=== PATIENT | male | born 1975 | race African-American/Black ===

== ENCOUNTER 2017-05-20 08:13 | Emergency (ER) | payer MEDICAID ==
[~2017-05-20] VITALS: Ht 175.3 cm; Wt 85.0 kg
[2017-05-20 08:14] VITALS: BP 136/82
== END 2017-05-20 10:17 | disposition left against medical advice (07) ==
LOC: ER 08:13
DX: R51 Headache (principal); Z53.21 Procedure and treatment not carried out due to patient leaving prior to being seen by health care provider

== ENCOUNTER 2018-05-04 19:06 | Inpatient (IN) | payer MEDICAID ==
[~2018-05-04] VITALS: Ht 185.4 cm; Wt 117.9 kg
[2018-05-04 21:38] LABS: BASOPHILS % 0.2 % (0.0-2.0); EOSINOPHILS % 0.1 % (0.0-5.0); HEMATOCRIT. 42.8 % (42.0-52.0); HEMOGLOBIN. 14.1 g/dL (14.0-18.0); LYMPHOCYTES % 21.6 % (20.0-50.0); MEAN CORPUSCULAR HEMOGLOBIN 30.3 pg (28.0-32.0); MEAN CORPUSCULAR VOLUME 91.6 fL (80.0-94.0); MEAN PLATELET VOLUME 8.2 fl (7.4-10.4); MONOCYTES % 8.2 % (2.0-8.0); NEUTROPHILS % 69.9 % (40.0-76.0); PLATELET 240 x1000/uL (130-400); RED BLOOD CELL COUNT 4.67 mill/uL (4.7-6.1); RED CELL DISTRIBUTION WIDTH 14.6 % (11.6-14.6)
[2018-05-04 21:45] LABS: CHLORIDE 104 mEq/L (98-107)
[2018-05-04] MEDS ORDERED: ASPIRIN 325MG EC TABLET PO ONE (21:45)
[2018-05-04] MEDS ORDERED: NITROGLYCERIN 0.4MG TABLET SL SL ONE (21:45)
[2018-05-04 23:13] LABS: INR 1.1; PARTIAL THROMBOPLASTIN TIME 27.1 sec (23.4-31.0)
[2018-05-04] MEDS ORDERED: MORPHINE SULFATE 4 MG/ML CPJ (NOT FOR IM USE) IV ONE (23:45)
[2018-05-05] MEDS ORDERED: MORPHINE SULFATE 10 MG/ML CPJ IV NR (00:45)
[2018-05-05] MEDS ORDERED: ENOXAPARIN 120MG/0.8ML SYR SUBCUT NR (00:45)
[2018-05-05 08:00] VITALS: BP 106/63
[2018-05-05] MEDS ORDERED: NITROGLYCERIN 0.4MG TABLET SL SL PRN (10:45)
[2018-05-05] MEDS ORDERED: ACETAMINOPHEN 325MG TABLET PO PRN (10:45)
[2018-05-05] MEDS ORDERED: ONDANSETRON HCL 4MG/2ML INJ IV PRN (10:45)
[2018-05-05 11:00] VITALS: BP 103/63
[2018-05-05 12:00] VITALS: BP_SYST 119; BP_SYST 139; BP_DIAS 98
[2018-05-05] MEDS: ASPIRIN 81MG TABLET PO SCH (12:00)
[2018-05-05] MEDS ORDERED: INFLUENZA VIRUS VACCINE(AFLURIA) 0.5ML SYR IM ONE (15:45)
[2018-05-05 16:00] VITALS: BP 140/87
[2018-05-05] MEDS ORDERED: LISI10TA5 MT (17:09)
[2018-05-05] MEDS ORDERED: FURO-151 MT (17:09)
[2018-05-05] MEDS ORDERED: RISP2 MT (17:09)
[2018-05-05] MEDS ORDERED: ASPI-1158 MT (17:09)
[2018-05-05] MEDS ORDERED: COR25 MT (17:09)
[2018-05-05] MEDS ORDERED: ATOR40TA70 MT (17:09)
[2018-05-05] MEDS ORDERED: POTA10CA42 MT (17:09)
[2018-05-05] MEDS ORDERED: SPIR25TA6 MT (17:09)
[2018-05-05] MEDS ORDERED: MIRT-91 MT (17:09)
[2018-05-05 20:00] VITALS: BP 137/77
[2018-05-05 20:47] LABS: LDL CHOLESTEROL 52 mg/dL (5-100)
[2018-05-05 20:48] LABS: HDL CHOLESTEROL 45 mg/dL (40-59)
[2018-05-05] MEDS ORDERED: MIRTAZAPINE 30MG TABLET PO SCH (21:00)
[2018-05-05] MEDS ORDERED: ATORVASTATIN CALCIUM 40MG TABLET PO SCH (21:00)
[2018-05-05] MEDS: FUROSEMIDE 40MG TABLET PO SCH (22:16)
[2018-05-05] MEDS: RISPERIDONE 1MG TABLET PO SCH (22:16)
[2018-05-05] MEDS: CARVEDILOL 25MG TABLET PO SCH (22:17)
[2018-05-06] VITALS: BP 132/70
[2018-05-06 04:00] VITALS: BP 104/63
[2018-05-06 08:00] VITALS: BP 117/58
[2018-05-06] MEDS ORDERED: LISINOPRIL 10MG TABLET PO SCH (08:00)
[2018-05-06] MEDS: ASPIRIN 81MG TABLET PO SCH (08:10)
[2018-05-06] MEDS: CARVEDILOL 25MG TABLET PO SCH (08:10)
[2018-05-06] MEDS: FUROSEMIDE 40MG TABLET PO SCH (08:11)
[2018-05-06] MEDS ORDERED: ASPIRIN 81MG EC TABLET PO SCH (09:00)
[2018-05-06] MEDS ORDERED: SPIRONOLACTONE 25MG TABLET PO SCH (09:00)
[2018-05-06] MEDS ORDERED: POTASSIUM CHLORIDE 10MEQ TABLET SR PO SCH (09:00)
[2018-05-06 09:37] LABS: BASOPHILS % 0.3 % (0.0-2.0); EOSINOPHILS % 1.2 % (0.0-5.0); HEMATOCRIT. 37.9 % (42.0-52.0); HEMOGLOBIN. 12.8 g/dL (14.0-18.0); LYMPHOCYTES % 31.7 % (20.0-50.0); MEAN CORPUSCULAR HEMOGLOBIN 30.5 pg (28.0-32.0); MEAN CORPUSCULAR VOLUME 90.1 fL (80.0-94.0); MEAN PLATELET VOLUME 8.1 fl (7.4-10.4); MONOCYTES % 10.2 % (2.0-8.0); NEUTROPHILS % 56.6 % (40.0-76.0); PLATELET 211 x1000/uL (130-400); RED CELL DISTRIBUTION WIDTH 14.5 % (11.6-14.6)
[2018-05-06 10:01] LABS: CHLORIDE 105 mEq/L (98-107)
[2018-05-06] MEDS: RISPERIDONE 1MG TABLET PO SCH (11:18)
[2018-05-06] MEDS ORDERED: POTASSIUM CHLORIDE 20MEQ TABLET SR PO NR (12:45)
[2018-05-06 15:37] VITALS: BP 117/60
== END 2018-05-06 16:53 | disposition home or self-care (01) | DRG 203 ==
LOC: ER 19:06 → 7WST 23:23 → ENRESERV 05-05 07:03
PROVIDERS: ADMIT Internal Medicine; ATTEND Internal Medicine
DX: M94.0 Chondrocostal junction syndrome [Tietze] (principal); I50.23 Acute on chronic systolic (congestive) heart failure; I27.20 Pulmonary hypertension, unspecified; I42.9 Cardiomyopathy, unspecified; I11.0 Hypertensive heart disease with heart failure; F15.10 Other stimulant abuse, uncomplicated; F17.210 Nicotine dependence, cigarettes, uncomplicated; I25.10 Atherosclerotic heart disease of native coronary artery without angina pectoris; Z95.810 Presence of automatic (implantable) cardiac defibrillator; I25.2 Old myocardial infarction; Z88.1 Allergy status to other antibiotic agents; Z71.3 Dietary counseling and surveillance; Z71.6 Tobacco abuse counseling
CPT/HCPCS: 36415; 71045; 80048; 80061; 83880; 84443; 84484; 93005; 93306; 96374; 96375; 99285; J1650; J2270